=== PATIENT | male | born 1990 | race African-American/Black ===

== ENCOUNTER 2017-12-12 13:01 | Emergency (ER) | payer SELFPAY ==
[~2017-12-12] VITALS: Ht 172.7 cm; Wt 75.0 kg
[~2017-12-12 13:01] MED LIST: NORC7.5T PO
[2017-12-12 13:14] VITALS: BP 152/68; PULSE 80; RESP 18; TEMP 98; O2SAT 99
--- NOTE | 2017-12-12 13:22 | PD ---
HPI Chief Complaint: ENT Complaint Time Seen by Provider: 13:17 Travel History International Travel<30 days: No Contact w/Intl Traveler<30days: No Traveled to known affect area: No History of Present Illness HPI 26-year-old -[place]ian male presents emergency department with increased pain and decreased hearing in the right ear for the past 2 days. Patient denies upper respiratory symptoms such as headache, sore throat, or postnasal drip. Patient denies pain with motion of the right ear. He denies drainage. Patient states history of cerumen impaction in the past. Pain is minimal. Patient has no known drug allergies. PFSH Past Medical History Cancer: No Cardiovascular Problems: No Endocrine: No Genitourinary: No Immune Disorder: No Musculoskeletal: No Neurologic: No Psychiatric: No Reproductive: No Respiratory: No Social History Alcohol Use: Yes (SOCIALLY) Tobacco Use: Yes (PACK A DAY ) Substance Use: No Allergies-Medications (Allergen,Severity, Reaction): Coded Allergies: No Known Allergies (Unverified Adverse Reaction, Unknown, 12/12/17) Reported Meds & Prescriptions Reported Meds & Active Scripts Active [place] 7.5/325 (Hydrocodone/Acetaminophen 7.5/325) 7.5 Mg/325 Mg Tab 1 Tab PO Q4H PRN Review of Systems Except as stated in HPI: all other systems reviewed are Neg General / Constitutional: No: Fever, Chills Eyes: No: Visual changes HENT: Positive: Earache, Other (See history of present illness per), No: Headaches, Vertigo, Lightheadedness, Sore Throat, Rhinitis, Rhinorrhea, Congestion, Nosebleed, Neck Stiffness, Neck Pain, Masses, Gingival Bleeding, Dental Difficulties, Ear Discharge Cardiovascular: No: Chest Pain or Discomfort Respiratory: No: Shortness of Breath Gastrointestinal: No: Abdominal Pain Genitourinary: No: Dysuria Musculoskeletal: No: Pain Skin: No Rash Neurologic: No: Weakness Psychiatric: No: Depression Endocrine: No: Polydipsia Hematologic/Lymphatic: No: Easy Bruising Physical Exam Narrative GENERAL: Patient is in no acute distress. SKIN: Warm and dry. Normal color. Normal turgor. HEAD: Atraumatic. Normocephalic. EYES: Pupils equal and round. No scleral icterus. No injection or drainage. ENT: No nasal bleeding or discharge. Mucous membranes pink and moist. Patient has bilateral cerumen impaction noted. No sinus tenderness. Pharynx is normal. Airway is patent. Right TM is dull and erythematous. No perforation noted. Left TM is normal. NECK: Trachea midline. Supple and nontender per CARDIOVASCULAR: Regular rate and rhythm. RESPIRATORY: No accessory muscle use. Clear to auscultation. Breath sounds equal bilaterally. MUSCULOSKELETAL: Extremities without clubbing, cyanosis, or edema. No obvious deformities. NEUROLOGICAL: Awake and alert. No obvious cranial nerve deficits. Motor grossly within normal limits. Five out of 5 muscle strength in the arms and legs. Normal speech. PSYCHIATRIC: Appropriate mood and affect; insight and judgment normal. Data Data Last Documented VS Vital Signs Date Time Temp Pulse Resp B/P (MAP) Pulse Ox O2 Delivery O2 Flow Rate FiO2 12/12/17 13:14 98.0 80 18 152/68 (96) 99 Orders Orders Ear Irrigation (12/12/17 13:20) [facility] Medical Decision Making Medical Screen Exam Complete: Yes Emergency Medical Condition: Yes Differential Diagnosis Ear pain. Decreased hearing. Cerumen impaction. Narrative Course Cerumen impaction is removed bilaterally with ear loop and irrigation without difficulty. Patient was treated with amoxicillin 875 twice daily for 7 days for his right otitis media Patient can take [id number] ibuprofen and Tylenol if necessary Discussed proper ear cleaning techniques Patient to follow-up as needed Procedures Procedure Narrative Ear lavage was performed by myself and nursing staff with removal of cerumen from both ears without difficulty. No perforation was noted of either tympanic membrane post procedure. Symptoms are alleviated. Patient tolerated procedure well. Diagnosis Primary Impression: Impacted cerumen of both ears Additional Impression: Right otitis media Qualified Codes: H66.001 - Acute suppurative otitis media without spontaneous rupture of ear drum, right ear Patient Instructions: Cerumen Impaction (ED), General Instructions Additional Instructions: Cerumen impaction is removed bilaterally with ear loop and irrigation without difficulty. Patient was treated with amoxicillin 875 twice daily for 7 days for his right otitis media Patient can take [id number] ibuprofen and Tylenol if necessary Discussed proper ear cleaning techniques Patient to follow-up as needed Med/Other Pt SpecificInfo: Prescription(s) given Disposition: 01 DISCHARGE HOME Condition: Stable Jovany Niño Dec 12, 2017 13:22
[2017-12-12] MEDS ORDERED: AMOX875T PO (13:43)
== END 2017-12-12 13:56 | disposition home or self-care (01) ==
LOC: NEPK 13:01
DX: H61.23 Impacted cerumen, bilateral (principal); H66.001 Acute suppurative otitis media without spontaneous rupture of ear drum, right ear; F17.200 Nicotine dependence, unspecified, uncomplicated
CPT/HCPCS: 69210